=== PATIENT | male | born 1990 | race Caucasian/White ===

== ENCOUNTER 2017-10-20 14:18 | Emergency (ER) | payer BC, OTHER ==
[2017-10-20 14:25] VITALS: BP 145/81; PULSE 89; TEMP 99.1; BMI 29.1
--- NOTE | 2017-10-20 14:49 | PDOC ---
History of Present Illness - General History Source: Patient Exam Limitations: No Limitations - History of Present Illness Initial Comments: 10/20/17 15:30 26 y.o male with no significant PMHx, who presents to the emergency room complaining of left lateral foot pain s/p injury this morning around 10:30 am. The patient explains that his left foot inverted when he quickly pivoted to talk to someone. He heard a pop in his foot and felt immediate pain. He reports pain to the lateral aspect of his foot that is 10/10 in severity and worse with ambulation and wiggling his toes. 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 He denies numbness or tingling. Denies any other injuries. Allergies: NKDA <Lyubov Flores - Last Filed: 10/20/17 15:30> <Ana Laura Whitlock - Last Filed: 10/20/17 17:32> - General Chief Complaint: Pain Stated Complaint: LEFT FOOT PAIN Time Seen by Provider: 10/20/17 14:23 Past History <Lyubov Flores - Last Filed: 10/20/17 15:30> - Past Medical History COPD: No Psychiatric Problems: Yes (ANXIETY) Other medical history: BONE SPUR - Suicide/Smoking/Psychosocial Hx Smoking History: Current every day smoker Have you smoked in the past 12 months: Yes Number of Cigarettes Smoked Daily: 15 Information on smoking cessation initiated: Yes 'Breaking Loose' booklet given: 10/20/17 Hx Alcohol Use: (occasional) <Ana Laura Whitlock - Last Filed: 10/20/17 17:32> - Past Medical History Allergies/Adverse Reactions: Allergies Allergy/AdvReac Type Severity Reaction Status Date / Time No Known Allergies Allergy Verified 10/20/17 14:18 Home Medications: Ambulatory Orders Clonazepam [Klonopin] 1 mg PO DAILY 10/20/17 Review of Systems - Review of Systems Able to Perform ROS?: Yes Comments:: 10/20/17 15:31 GENERAL/CONSTITUTIONAL: No fever or chills. No weakness. HEAD, EYES, EARS, NOSE AND THROAT: No change in vision. No ear pain or discharge. No sore throat. CARDIOVASCULAR: No chest pain or shortness of breath. RESPIRATORY: No cough, wheezing, or hemoptysis. MUSCULOSKELETAL: +left lateral foot pain. No neck or back pain. SKIN: No rash NEUROLOGIC: No headache, vertigo, loss of consciousness, or change in strength/ sensation. <Lyubov Flores - Last Filed: 10/20/17 15:30> *Physical Exam - Vital Signs Last Vital Signs Temp Pulse Resp BP Pulse Ox 99.1 F 89 18 145/81 98 10/20/17 14:18 10/20/17 14:18 10/20/17 14:18 10/20/17 14:18 10/20/17 14:18 - Physical Exam Comments: GENERAL: Awake, alert, and fully oriented, in no acute distress HEAD: No signs of trauma EYES: PERRLA, EOMI, sclera anicteric, conjunctiva clear HEART: Regular rate and rhythm, normal S1 and S2, no murmurs, rubs or gallops LEFT FOOT: 2+dp pulse. +tenderness to palpation over the entire 5th metatarsal bone with no deformities or edema. Full ROM. 5/5 strength with plantar and dorsiflexion. Normal sensation in L foot. Ankle is stable. BACK: No midline spinal tenderness in cervical/thoracic/lumbar region NEUROLOGICAL: Normal speech, normal gait. SKIN: Warm, Dry, normal turgor, no rashes or lesions noted. <Lyubov Flores - Last Filed: 10/20/17 15:30> - Vital Signs Last Vital Signs Temp Pulse Resp BP Pulse Ox 99.1 F 89 18 145/81 98 10/20/17 14:18 10/20/17 14:18 10/20/17 14:18 10/20/17 14:18 10/20/17 14:18 <Ana Laura Whitlock - Last Filed: 10/20/17 17:32> ED Treatment Course - Medications Given in the ED: ED Medications Discontinued Medications Generic Name Dose Route Start Last Admin Trade Name Freq PRN Reason Stop Dose Admin Acetaminophen/Codeine Phosphate 1 tab 10/20/17 14:51 10/20/17 15:00 Tylenol # 3 - PO 10/20/17 14:52 1 tab ONCE ONE Administration Ketorolac Tromethamine 30 mg 10/20/17 14:51 10/20/17 15:00 Toradol Injection - IM 10/20/17 14:52 30 mg ONCE ONE Administration <Lyubov Flores - Last Filed: 10/20/17 15:30> Medical Decision Making - Medical Decision Making 10/20/17 17:20 26-year-old male presents with foot pain after an injury at work. Vitals are unremarkable. Exam with tenderness to palpation over the left fifth metatarsal. X-ray with pseudo-Gilbert fracture. Fracture does not appear to be acute and is either chronic or subacute. Will give the patient a postop shoe and crutches for comfort and discharged with ortho follow-up. In the meantime he can be weightbearing as tolerated. I discussed the physical exam findings, ancillary test results and final diagnoses with the patient. I answered all of the patient's questions. The patient was satisfied with the care received and felt comfortable with the discharge plan and treatment plan. The patient will call their primary care physician within 24 hours to arrange follow-up and will return to the Emergency Department with any new, persistent or worsening symptoms. <Ana Laura Whitlock - Last Filed: 10/20/17 17:32> *DC/Admit/Observation/Transfer - Attestations Scribe Attestion: 10/20/17 15:31 Documentation prepared by RODRIGO Bass, acting as medical administrative specialist for Ana Laura Whitlock MD. <Lyubov Flores - Last Filed: 10/20/17 15:30> - Discharge Dispostion Admit: No - Attestations Physician Attestion: 10/20/17 17:32 I, Dr. Ana Laura Whitlock MD, attest that this document has been prepared under my direction and personally reviewed by me in its entirety. I further attest, that it accurately reflects all work, treatment, procedures and medical decision -making performed by me. <Ana Laura Whitlock - Last Filed: 10/20/17 17:32> Diagnosis at time of Disposition: Fracture of fifth metatarsal bone - Discharge Dispostion Disposition: HOME Condition at time of disposition: Stable - Referrals Referrals: Keith Chowdhury MD [Staff Physician] - - Patient Instructions Printed Discharge Instructions: DI for Foot Fracture Additional Instructions: Call Dr. Chowdhury's office for a follow-up appointment within one week. You may bear weight on your foot as tolerated. Take naproxen twice a day for pain as needed. If naproxen does not adequately controlling your pain, you may take Percocet. Return to the emergency department if you have any new, worsening or concerning symptoms.
[2017-10-20] MEDS ORDERED: KETOROLAC TROMETHAMINE 15 MG/ML VIAL IM ONE (14:51)
[2017-10-20] MEDS ORDERED: ACETAMINOPHEN WITH CODEINE 300MG/30MG TABLET PO ONE (14:51)
[2017-10-20] MEDS ORDERED: KETOROLAC TROMETHAMINE 30 MG/1 ML VIAL ONE (14:52)
[2017-10-20] MEDS ORDERED: ACETAMINOPHEN WITH CODEINE 300MG/30MG TABLET ONE (14:52)
== END 2017-10-20 17:55 | disposition home or self-care (01) ==
LOC: FER 14:18
CPT/HCPCS: 73630-TC-LT; 99283-25

== ENCOUNTER 2019-09-11 14:31 | Emergency (ER) | payer BC ==
[2019-09-11 14:44] VITALS: BMI 34.5
[2019-09-11 14:46] VITALS: TEMP 98.7
[2019-09-11 15:19] VITALS: BP 140/82; PULSE 76
--- NOTE | 2019-09-11 15:20 | PDOC ---
Documentation entered by Montserrat Swanson SCRIBE, acting as scribe for Roland Jang MD. Roland Jagn MD: This documentation has been prepared by the Sky jorge Adrianna, SCRIBE, under my direction and personally reviewed by me in its entirety. I confirm that the documentation accurately reflects all work, treatment, procedures, and medical decision making performed by me. History of Present Illness - General Chief Complaint: RX Refill Stated Complaint: med refill - History of Present Illness Initial Comments: The patient is a 28 year old male, with a significant PMH of anxiety, who presents to the ED for medication refill. Patient notes he is on Clonazepam prescription 3 times a day daily. For the past 5 days, patient has been out of his medication. He spoke to his PCP (who is currently out of office), who advised he come to the ED for a short-term refill. Patient reports feeling slightly anxious, but it otherwise asymptomatic. Allergies: NKA, NKDA Surgical History: None reported Social History: Current everyday smoker (1ppd). Daily EtOH use (1-2 beers a night). Denies illicit drug use. PCP: Dr. Thomas Past History - Past Medical History Allergies/Adverse Reactions: Allergies Allergy/AdvReac Type Severity Reaction Status Date / Time No Known Allergies Allergy Verified 09/11/19 14:32 Home Medications: Ambulatory Orders Clonazepam [Klonopin] 1 mg PO TID #15 tablet MDD 3 09/11/19 COPD: No Psychiatric Problems: Yes (ANXIETY) - Psycho Social/Smoking Cessation Hx Smoking History: Current every day smoker Have you smoked in the past 12 months: Yes Number of Cigarettes Smoked Daily: 15 'Breaking Loose' booklet given: 10/20/17 Hx Alcohol Use: (occasional) Review of Systems - Review of Systems Comments:: GENERAL/CONSTITUTIONAL: +Slightly anxious. No fever or chills. No weakness. HEAD, EYES, EARS, NOSE AND THROAT: No change in vision. No ear pain or discharge. No sore throat. CARDIOVASCULAR: No chest pain or shortness of breath. RESPIRATORY: No cough, wheezing, or hemoptysis. GASTROINTESTINAL: No nausea, vomiting, diarrhea or constipation. GENITOURINARY: No dysuria, frequency, or change in urination. MUSCULOSKELETAL: No joint or muscle swelling or pain. No neck or back pain. SKIN: No rash NEUROLOGIC: No headache, vertigo, loss of consciousness, or change in strength/ sensation. ENDOCRINE: No increased thirst. No abnormal weight change. HEMATOLOGIC/LYMPHATIC: No anemia, easy bleeding, or history of blood clots. ALLERGIC/IMMUNOLOGIC: No hives or skin allergy. *Physical Exam - Vital Signs Last Vital Signs Temp Pulse Resp BP Pulse Ox 98.7 F 87 16 149/97 97 09/11/19 14:31 09/11/19 14:31 09/11/19 14:31 09/11/19 14:31 09/11/19 14:31 - Physical Exam Comments: GENERAL: Awake, alert, and fully oriented, in no acute distress HEAD: No signs of trauma EYES: PERRLA, EOMI, sclera anicteric, conjunctiva clear ENT: Auricles normal inspection, hearing grossly normal, nares patent, oropharynx clear without exudates. Moist mucosa NECK: Normal ROM, supple, no lymphadenopathy, JVD, or masses LUNGS: Breath sounds equal, clear to auscultation bilaterally. No wheezes, and no crackles HEART: Regular rate and rhythm, normal S1 and S2, no murmurs, rubs or gallops ABDOMEN: Soft, nontender, normoactive bowel sounds. No guarding, no rebound. No masses EXTREMITIES: Normal range of motion, no edema. No clubbing or cyanosis. No cords, erythema, or tenderness NEUROLOGICAL: Cranial nerves II through XII grossly intact. Normal speech, normal gait SKIN: Warm, Dry, normal turgor, no rashes or lesions noted. ED Treatment Course - Consult/PCP Case discussed with personal care physician: Aj Thomas (Dr. Thomas was contacted by phone, prescription for patient did not go through to pharmacy, will refill tomorrow ) Medical Decision Making - Medical Decision Making 09/11/19 17:16 Patient has been on Klonopin for several years for anxiety, 3 times daily. Did not receive his usual prescription from Dr. Julio this month. Has been without it for about [address] Julio contacted by phone. His prescription apparently was not received by the pharmacist. It was sent last week. Patient's physical exam is normal. Vital signs are stable. Refilled Klonopin 1 mg 3 times daily, 15 pills, until Dr. Julio can refill his usual prescription. Discharge - Discharge Information Problems reviewed: Yes Clinical Impression/Diagnosis: Anxiety Condition: Stable Disposition: HOME - Admission No - Additional Discharge Information Prescriptions: Clonazepam [Klonopin] 1 mg PO TID #15 tablet MDD 3 - Follow up/Referral Referrals: Aj Thomas MD [Primary Care Provider] - 24 hours - Patient Discharge Instructions Patient Printed Discharge Instructions: DI for Anxiety -- Adult - Post Discharge Activity Work/Back to School Note: Back to Work
== END 2019-09-11 15:19 | disposition home or self-care (01) ==
LOC: FER 14:31
DX: F41.9 Anxiety disorder, unspecified (principal)
CPT/HCPCS: 99281-25

== ENCOUNTER 2021-09-29 13:15 | Emergency (ER) | payer OTHER, BC ==
[2021-09-29 13:28] VITALS: BP 134/77; PULSE 97; TEMP 99.5; BMI 38.0
[2021-09-29] MEDS ORDERED: KETOROLAC TROMETHAMINE 15 MG/ML VIAL IM ONE (13:47)
[2021-09-29] MEDS ORDERED: LIDOCAINE 5% TOPICAL PATCH TP ONE (13:47)
[2021-09-29] MEDS ORDERED: METHOCARBAMOL 500 MG TABLET PO ONE ×2 (13:47→14:50)
[2021-09-29] MEDS ORDERED: KETOROLAC TROMETHAMINE 15 MG/ML VIAL ONE (13:52)
[2021-09-29] MEDS ORDERED: METHOCARBAMOL 500 MG TABLET ONE ×2 (13:52→14:54)
[2021-09-29] MEDS ORDERED: LIDOCAINE 5% TOPICAL PATCH ONE (13:52)
[2021-09-29] MEDS ORDERED: predniSONE 20 MG TABLET (UD) PO ONE (14:50)
[2021-09-29] MEDS ORDERED: predniSONE 20 MG TABLET (UD) ONE (14:54)
[2021-09-29] MEDS ORDERED: LIDOCAINE PATCH REMOVAL MC SCH (22:00)
== END 2021-09-29 15:59 | disposition home or self-care (01) ==
LOC: FER 13:15
PROC: 3E0233Z Introduction of Anti-inflammatory into Muscle, Percutaneous Approach (ICD-10-PCS; principal; 2021-09-29)
DX: M54.50 Low back pain, unspecified (principal); X50.0XXA Overexertion from strenuous movement or load, initial encounter
CPT/HCPCS: 72100-TC-FY; 99284-25